=== PATIENT | female | born 1950 | race Caucasian/White ===

== ENCOUNTER 2019-05-06 11:10 | Emergency (ER) | payer OTHER, MEDICARE, SELFPAY ==
[2019-05-06 11:39] VITALS: BP 162/64; PULSE 87; RESP 17; TEMP 36.6; O2SAT 96; BMI 23.1
--- NOTE | 2019-05-06 11:39 | DI.RAD.S_ITS ---
PROCEDURE: XR KNEE RT 3V INDICATIONS: pain injury TECHNIQUE: 3 views of the knee were acquired. COMPARISON: None. FINDINGS: Bones: No fractures or dislocations. No suspicious bony lesions. Soft tissues: No joint effusion. No suspicious soft tissue calcifications. IMPRESSION: No acute fracture or dislocation of the right knee. Consider followup radiographs in 7-10 days if there is continued clinical concern. Dictated by: Willem Castillo M.D. on 05/06/2019 at 12:22 Approved by: Willem Castillo M.D. on 05/06/2019 at 12:26
--- NOTE | 2019-05-06 11:55 | ED.LOWEXIN ---
HPI - Extremity Injury (Lower) General Chief Complaint: Extremity Injury, Lower Stated Complaint: right knee injury x5 days Time Seen by Provider: 05/06/19 11:16 Source: patient Mode of arrival: Ambulatory Limitations: no limitations History of Present Illness HPI Narrative: 69-year-old female nonsmoker with noncontributory medical history presents with a chief complaint of right knee pain after a fall 5 days ago. She was wearing socks on a slippery surface and walking down stairs when she slipped and fell, twisting and bending her knee awkwardly. She states it is certainly more of a twisting injury than a direct impact. She denies any history of knee pain. She states it hurts when she ambulates, it causes her to limp and it feels slightly unsteady. She denies any other injury and is otherwise well and free of complaint. She denies any numbness, tingling or weakness MD complaint: knee injury Onset (ago): day(s) Type of Injury: inversion, hyperextension and hyperflexion Place: home Severity: moderate Relieving factors: immobilization and rest Exacerbating factors: weight bearing, movement and palpation Context: fall Associated symptoms: swelling and able to partially bear weight Other symptoms: none Treatments prior to arrival: cold therapy Related Data Home Medications Medication Instructions Recorded Confirmed ASPIRIN (Aspir-Low) 81 mg PO Q DAY #0 04/01/12 B.ANI/L.ACI/L.JO/L.PLAN/L.GAVI 1 cap PO SEE INSTRUCTIONS #0 04/01/12 (Probiotic Formula Capsule) FOLIC ACID/VIT A/VIT B1/VIT 1 tab PO QDAY #0 04/01/12 (#MULTIVITAMIN) KRILL OIL (#[facility] KRILL OIL) 300 mg PO Q DAY #0 04/01/12 PSYLLIUM (#METAMUCIL) 3.4 gm PO #0 04/01/12 SIMETHICONE (Gas Relief) 125 mg PO PRN #0 04/01/12 [SOY SMOOTHIE POWER] #0 04/01/12 CALCIUM CARBONATE (Calcium) 600 mg PO QDAY #0 06/17/12 CHOLECALCIFEROL (VITAMIN D) 1,000 iu PO QDAY #0 06/17/12 loratadine [Claritin] 10 mg PO QDAY #0 06/19/12 alprazolam 0.25 mg PO BIDP 05/06/19 05/06/19 clobetasol 1 applic TOPICAL 2XW 05/06/19 05/06/19 dicyclomine 10 mg PO TID 05/06/19 triamterene-hydrochlorothiazid 1 tab PO DAILY 05/06/19 05/06/19 Previous Rx's Medication Instructions Recorded Fluticasone Propionate (FLONASE) 1 spray INTRANASAL BID #1 09/04/12 Pravastatin Sodium (PRAVASTATIN 40 mg PO HS #90 10/21/12 SODIUM) Allergies Allergy/AdvReac Type Severity Reaction Status Date / Time Penicillins Allergy Verified 05/06/19 11:39 Review of Systems Constitutional Constitutional: Denies chills, Denies fatigue, Denies fever(s), Denies frequent falls, Denies lethargy and Denies weakness Eyes Eyes: Denies change in vision, Denies eye discharge, Denies irritation and Denies loss of vision ENT Ears, Nose, Mouth, and Throat: Denies change in voice, Denies dizziness, Denies neck pain, Denies sore throat and Denies throat swelling Cardiovascular Cardiovascular: Denies chest pain, Denies irregular heart rhythm, Denies lightheadedness, Denies palpitations, Denies dyspnea, Denies dyspnea on exertion and Denies orthopnea Respiratory Respiratory: Denies cough, Denies dyspnea, Denies dyspnea on exertion and Denies wheezing Gastrointestinal Gastrointestinal: Denies abdominal pain, Denies change in bowel habits, Denies diarrhea, Denies nausea and Denies vomiting Genitourinary Genitourinary: Denies hematuria, Denies flank pain, Denies urinary incontinence and Denies urinary urgency Musculoskeletal Musculoskeletal: Denies back pain, Reports joint swelling, Reports limited range of motion, Denies muscle weakness, Denies neck pain, Denies numbness and Denies tingling Integumentary/Breasts Skin/Breast: Denies pruritus, Denies erythema, Denies rash and Denies wounds Neurologic Neurologic: Denies behavioral changes, Denies confusion, Denies dizziness, Denies frequent falls, Denies loss of vision, Denies numbness, Denies tingling and Denies weakness Psychiatric Psychiatric: Denies anxiety, Denies behavioral changes, Denies confusion, Denies depression, Denies homicidal ideation and Denies suicidal ideation Endocrine Endocrine: Denies fatigue, Denies flushing and Denies palpitations Hematologic/Lymphatic Hematologic/Lymphatic: Denies easy bruising Allergic/Immunologic Allergic/Immunologic: Denies urticaria, Denies throat swelling and Denies wheezing Exam Narrative Exam Narrative: GEN: AOx3 and in mild distress EYES: Pupils are equal, round, and reactive to light and accommodation. Extraoccular muscles are intact bilaterally. There is no subconjunctival hemorrhage or exudate. CHEST: Lungs are clear to auscultation bilaterally and free of wheezes, rales, or rhonchi. Heart rate is regular rhythm, there are no murmurs, clicks, rubs, or gallops. There is no chest wall tenderness. ABD: Abdomen is soft and nontender. There is no guarding or rebound. Bowel sounds are normal in all 4 quadrants. There is no mass or organomegaly. EXT: Full but painful range of motion of the right knee. There is minimal effusion with some medial joint line tenderness to palpation. Positive Roscoe's sign with pain elicited and the medial joint line. No ligamentous laxity noted. No increasing pain with axial loading. SKIN: Warm, pink, and dry. No erythema or rash Initial Vital Signs Initial Vital Signs: Vital Signs Temperature 97.9 F 05/06/19 11:39 Pulse Rate 87 05/06/19 11:39 Respiratory Rate 17 05/06/19 11:39 Blood Pressure 162/64 H 05/06/19 11:39 Pulse Oximetry 96 05/06/19 11:39 Procedures Orthopedic Splinting/Casting Injury #1: Side: right Lower Extremity Injury Location: knee Lower Extremity Immobilizer: knee immobilizer Post splinting neuro exam: intact Post splinting vascular exam: intact Placed by: Nursing Course Orders Ordered: ED Orders 05/06/19 11:39 XR knee RT 3V Stat Vital Signs Vital signs: Vital Signs - 8 hr 05/06/19 11:39 05/06/19 12:51 Temperature 97.9 F 98.2 F Pulse Rate 87 77 Respiratory Rate 17 17 Blood Pressure 162/64 H Blood Pressure [Left Arm] 131/76 Pulse Oximetry 96 97 MDM - Extremity Injury (Lower) Imaging Data Knee Xray: Radiologist's impression: [address] [address] XRay Report Signed Patient: Tawnya Diallo EMR#: [id number] : 8Acct:[id number] Age/Sex: 69 / FDate of Service: 05/06/19 Loc: ED Accession Number: [id number] Procedure: XR knee RT 3V Ordering Provider: Tyler Huddleston D.O. PROCEDURE: XR KNEE RT 3V INDICATIONS: pain injury TECHNIQUE: 3 views of the knee were acquired. COMPARISON: None. FINDINGS: Bones: No fractures or dislocations. No suspicious bony lesions. Soft tissues: No joint effusion. No suspicious soft tissue calcifications. IMPRESSION: No acute fracture or dislocation of the right knee. Consider followup radiographs in 7-10 days if there is continued clinical concern. Dictated by: Willem Castillo M.D. on 05/06/2019 at 12:22 Approved by: Willme Castillo M.D. on 05/06/2019 at 12:26 Discharge Plan Departure Patient Disposition: Home Clinical Impression: Right knee injury Qualifiers: Encounter type: initial encounter Qualified Code(s): S89.91XA - Unspecified injury of right lower leg, initial encounter Discharge Date/Time: 05/06/19 13:05 Instructions: DI for Knee Sprain Activity Restrictions/Additional Instructions: *You have been diagnosed with [acute right knee injury, suspect soft tissue, meniscal or ligamentous injury] *What to do: *Take medications as directed: Tylenol or Motrin for pain *Follow up with your primary care provider in 2-3 days, call for an appointment. Let them know you were seen in the Emergency Department and that we ask that you be seen in follow up *Return to ER if you should have any new, worsening or concerning symptoms *Wear splint until follow up Prescriptions: No Action ASPIRIN (Aspir-Low) 81 mg PO Q DAY Qty: 0 RF: 0 B.ANI/L.ACI/L.JO/L.PLAN/L.GAVI (Probiotic Formula Capsule) 1 cap PO SEE INSTRUCTIONS Qty: 0 RF: 0 [SOY SMOOTHIE POWER] Qty: 0 RF: 0 KRILL OIL (#[facility] KRILL OIL) 300 mg PO Q DAY Qty: 0 RF: 0 FOLIC ACID/VIT A/VIT B1/VIT (#MULTIVITAMIN) 1 tab PO QDAY Qty: 0 RF: 0 SIMETHICONE (Gas Relief) 125 mg PO PRN Qty: 0 RF: 0 PSYLLIUM (#METAMUCIL) 3.4 gm PO Qty: 0 RF: 0 CHOLECALCIFEROL (VITAMIN D) 1,000 iu PO QDAY Qty: 0 RF: 0 CALCIUM CARBONATE (Calcium) 600 mg PO QDAY Qty: 0 RF: 0 loratadine [Claritin] 10 MG tablet 10 mg PO QDAY Qty: 0 RF: 0 Fluticasone Propionate (FLONASE) 1 spray Intranasal BID Qty: 1 RF: 0 Pravastatin Sodium (PRAVASTATIN SODIUM) 40 mg PO HS Qty: 90 RF: 1 triamterene-hydrochlorothiazid 37.5-25 mg tablet 1 tab PO DAILY RF: 0 alprazolam 0.25 MG tablet 0.25 mg PO BIDP RF: 0 clobetasol 0.05 % solution 1 applic TOPICAL 2XW RF: 0 dicyclomine 10 mg capsule 10 mg PO TID RF: 0 Referrals: Shonna Renteria PA-C [Non-Staff] -
[2019-05-06 12:51] VITALS: BP 131/76; PULSE 77; RESP 17; TEMP 36.8; O2SAT 97
== END 2019-05-06 13:05 | disposition home or self-care (01) ==
PROVIDERS: Emergency Provider Emergency Medicine
DX: S89.91XA Unspecified injury of right lower leg, initial encounter (principal); W10.8XXA Fall (on) (from) other stairs and steps, initial encounter
CPT/HCPCS: 73562; 99283

== ENCOUNTER → 2019-06-24 11:45 | Outpatient (CLI) | payer OTHER, SELFPAY ==
--- NOTE | 2019-06-24 | DI.US.S_ITS ---
PROCEDURE: US CAROTID DOPPLER BI INDICATIONS: OCCLUSION AND STENOSIS OF UNSPECIFIED CAROTID ARTERY TECHNIQUE: Color and pulse Doppler interrogation was performed of both carotid systems, with image documentation and velocity measurements. COMPARISON: None. FINDINGS: Stenosis calculations are based on SRU (Society of Radiologists in Ultrasound) criteria. Right side: Brachial blood pressure: 118/58 mm Hg. Common carotid artery peak systolic velocity: 51 cm/sec. Internal carotid artery peak systolic velocity: 85 cm/sec. Internal carotid artery end diastolic velocity: 23 cm/sec. External carotid artery peak systolic velocity: 62 cm/sec. ICA/CCA peak systolic ratio: 1.7. Chu scale imaging description: Mild soft plaque Percent internal carotid artery stenosis: Less than 50% stenosis. Vertebral artery: Flow direction is antegrade. Left side: Brachial blood pressure: 119/59 mm Hg. Common carotid artery peak systolic velocity: 54 cm/sec. Internal carotid artery peak systolic velocity: 71 cm/sec. Internal carotid artery end diastolic velocity: 19 cm/sec. External carotid artery peak systolic velocity: 76 cm/sec. ICA/CCA peak systolic ratio: 1.3. Chu scale imaging description: Mild soft plaque Percent internal carotid artery stenosis: Less than 50% stenosis. Vertebral artery: Flow direction is antegrade. IMPRESSION: Less than 50% stenosis at the proximal internal carotid arteries bilaterally. Dictated by: Scott So M.D. on 06/24/2019 at 14:46 Approved by: Scott So M.D. on 06/24/2019 at 14:48
== END ==
PROVIDERS: Family Provider Surgery; PCP Physician Assistant Medical; Visit Provider Physician Assistant Medical
DX: I65.23 Occlusion and stenosis of bilateral carotid arteries (principal)
CPT/HCPCS: 93880

== ENCOUNTER → 2021-08-25 10:31 | Outpatient (CLI) | payer OTHER, SELFPAY ==
--- NOTE | 2021-08-25 | DI.MG.S_ITS ---
UNILATERAL RIGHT DIGITAL DIAGNOSTIC MAMMOGRAM 3D/2D POST-PROCEDURE IMAGING FOR MARKER PLACEMENT: 08/25/2021 CLINICAL: Right post clip. Comparison is made to exams dated: 08/25/2021 ultrasound biopsy - [facility], 07/31/2021 ultrasound, and 07/31/2021 mammogram - [facility]. There are scattered fibroglandular elements in right breast. There is a marker clip in the appropriate position in the right breast at 9 o'clock posterior depth. This marker clip placement is at the biopsy site. IMPRESSION: POST PROCEDURE MAMMOGRAM FOR MARKER PLACEMENT There was a successful marker clip placement in the right breast posterior depth. This exam was interpreted at Station ID: [id number]. NOTE: For mammograms, a report in lay terms will be sent to the patient. Approximately 15% of breast malignancies will not be visualized mammographically. In the management of a palpable breast mass, a negative mammogram must not discourage biopsy of a clinically suspicious lesion. Electronically Signed By: Katelyn cummins/hortensia:08/25/2021 15:38:28 ACR BI-RADS Category Post-procedure mammogram for marker placement
--- NOTE | 2021-08-25 | PATH_ITS ---
[facility] Accession Number: [id number] . 01 Material submitted: . breast - RIGHT BREAST MASS 9:00 7CMFN . 02 Diagnosis: Right Breast Mass 9 o'clock, 7 cm from Nipple, Ultrasound-Guided Needle Core Biopsy: Highly fragmented biopsy with features of at least in-situ carcinoma. Please see Cancer Case Summary. . . CASE SUMMARY Specimen Procedure: Needle biopsy. Specimen laterality: Right. . Tumor Tumor site: 9 o'clock, midway between the upper outer and lower outer quadrants. Histologic type: Favor at least in-situ carcinoma (ductal by e-cadherin studies); differential diagnosis includes encapsulated papillary carcinoma, solid papillary carcinoma, and invasive carcinoma. Tissue fragmentation is obscuring. Architectural patterns: Papillary and solid patterns present; tissue fragmentation precludes definitive characterization. Nuclear grade: Grade 1 (low). Necrosis: Not identified. Microcalcifications: Not identified. Special Studies: Estrogen Receptor (ER) Status: Positive, greater than 95% of tumor nuclei. Average intensity of staining: Strong. Primary antibody: SP1 Progesterone Receptor (PgR) Status: Positive, approximately 70% of tumor nuclei. Average intensity of staining: Moderate to strong staining. Primary antibody: 1E2 HER2 (by immunohistochemistry): Negative at 0+. Primary antibody: 4B5 [facility] 08/30/2021 1601 Local . 02 Comment: As part of routine research associate quality control qc, this case was also reviewed by Dr. Kaur, who agrees with the interpretation. . Dr. Renteria's phone number not identified for communication of results. . 02 Electronically signed: . Kiki Cummings MD, Pathologist NPI- [id number] . 01 Gross description: . Received in formalin and labeled right breast 9 o'clock, 7 cm FN are multiple fragments of santiago soft tissue measuring 2.5 x 0.7 x 0.3 cm in aggregate. All fragments are submitted in one cassette. Time of collection is 08/25/2021 at 11:55 a.m. Specimen will finish processing and be out of formalin on 08/28/2021 at 11:30 a.m. ([id number]) /MRV 08/28/2021 1210 Local . 02 Microscopic: . An immunohistochemistry study is performed to evaluate the cells of interest. The control stain shows appropriate reactivity. . RESULTS: P63: Present in regions of interest. Smooth muscle myosin: Present in regions of interest. CK 5/6: Diminished in regions of interest. E-cadherin: Diffusely positive. UMAIR-3: Diffuse, strong positivity. . 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 . CAP BREAST BIOMARKER REPORTING TEMPLATE: . Estrogen Receptor (ER) Status: Positive, greater than 95% of tumor nuclei. Average intensity of staining: Strong. Primary antibody: SP1 Progesterone Receptor (PgR) Status: Positive, Approximately 70% of tumor nuclei. Average intensity of staining: Moderate to strong staining. Primary antibody: 1E2 HER2 (by immunohistochemistry): Negative at 0+. Primary antibody: 4B5 . . Cold Ischemia and Fixation Times: Meets requirements in the latest version of the ASCO/CAP guidelines. Testing performed on Block Number: . TECHNICAL NOTE: The scoring criteria for breast biomarkers by immunohistochemistry is based on the current ASCO/CAP guidelines (Sydney et al, Arch Pathol Lab Med 2010: 134(6): 907-922 / Diego MANE et al, Arch Pathol Lab Med 2014: 138(2):241-256). Deparaffinized sections of formalin fixed tissue (along with appropriate positive controls) are incubated with the above antibody(s). Using the automated Lena stainer, tissue is incubated with the designated antibody* which is then localized by a non-biotin, dual polymer detection system. The external controls are reviewed for appropriate reactivity and found to be adequate. Results on the target cell population are indicated above. These tests have not been validated on decalcified tissue. . * This test was developed and its performance characteristics determined by [employer]. It has not been cleared or approved by the U.S. Food and Drug Administration. The FDA has determined that such clearance or approval is not necessary. This test is used for clinical purposes. It should not be regarded as investigational or for research. . 02 Pathologist provided ICD-10: D05.10 . 02 CPT . 829873, Z07791, D12668, 639100, 436434, 336336 Specimen Comment: A courtesy copy of this report has been sent to [facility] Performed at: 01 [facility] [address] [place] [address], [place], [place] [id number] MD Fercho Garrido MD Phone: [phone] Performed at: 02 [facility] [address] [place], [place] [id number] MD Génesis Varghese MD Phone: [phone]
--- NOTE | 2021-08-25 | DI.US.S_ITS ---
ULTRASOUND GUIDED BIOPSY RIGHT BREAST USING VACUUM DEVICE WITH MARKING DEVICE INSERTED AND POST DIGITAL MAMMOGRAPHIC IMAGIN08/25/2021 CLINICAL: Right breast mass. PATIENT CONSENT: Risks (minor bleeding, infection, vasovagal reaction and repeat procedure), benefits and alternatives were explained to the patient and written informed consent was obtained. Correlation is made to exams dated: 07/31/2021 ultrasound, 07/31/2021 mammogram, 04/28/2021 mammogram, 07/14/2019 mammogram, 04/15/2018 mammogram, and 01/21/2017 mammogram - [facility]. An ultrasound guided biopsy using real-time ultrasound was performed for the irregular shaped mass located in the right breast at 9 o'clock posterior depth. The skin was prepped in the usual manner. Local anesthetic was administered to the access site. A skin yovani was made in the breast. The abnormality was approached from the lateral aspect. A 13 gauge biopsy needle was placed adjacent to the abnormality under ultrasound guidance. Once the needle was documented to be in the correct location, three specimens were obtained using the Mammotome biopsy system. A Vision biopsy clip was inserted into the biopsy cavity. A skin closure strip was applied to the access site. Post procedure digital mammographic imaging was obtained. The specimens were sent to the laboratory for pathological analysis. IMPRESSION: ULTRASOUND GUIDED BIOPSY MALIGNANT Ultrasound guided biopsy of the mass in the right breast at 9 o'clock posterior depth was successful. 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 Pathology results are concordant with imaging findings. A surgical/oncologic consultation is recommended. This exam was interpreted at Station ID: [id number]. Katelyn Hudson M.D. [facility],aty/:09/01/2021 07:10:31
== END ==
PROVIDERS: Family Provider Surgery; PCP Physician Assistant Medical; Referring Provider Physician Assistant Medical; Visit Provider Physician Assistant Medical
DX: D05.91 Unspecified type of carcinoma in situ of right breast (principal)
CPT/HCPCS: 19083; 77065

== ENCOUNTER → 2021-09-20 13:10 | Outpatient (CLI) | payer OTHER, SELFPAY ==
--- NOTE | 2021-09-20 | DI.MRI.S_ITS ---
BREAST MRI OF BOTH BREASTS: 09/20/2021 CLINICAL: Adenocarcinoma. TECHNIQUE: The patient was placed prone in a dedicated breast imaging coil. Precontrast axial STIR and 3D FLASH without fat saturation sequences were obtained. Both before and after bolus injection of contrast, sequential 1-minute axial 3D FLASH with fat saturation sequences for 3 time points, with subtraction images and maximum intensity projections (MIP's) generated. Delayed sagittal FLASH images with fat saturation were also obtained. Computer-aided detection, including computer algorithm analysis of MRI image data for lesion detection and characterization, pharmacokinetic analysis, with further physician review for interpretation, was performed. COMPARISON: [facility], MM TOMOSYNTHESIS SCREENING BI, 04/15/2018, 10:25. [facility], MM TOMOSYNTHESIS SCREENING BI, 07/14/2019, 8:28. [facility], MM TOMOSYNTHESIS SCREENING BI, 04/28/2021, 13:25. [facility], , US RIGHT BREAST, 07/31/2021, 10:16. [facility], MM TOMOSYNTHESIS DIAGNOSTIC RT, 07/31/2021, 10:20. [facility], MM DIAGNOSTIC MAMMO UNILAT RT2D, 08/25/2021, 11:59. Image quality: Excellent. There is minimal background parenchymal enhancement. There is scattered fibroglandular tissue in the. Right breast: At the 9 o'clock axis, posterior depth of the right breast approximately 6 cm from the nipple there is an enhancing, irregular mass measuring 0.9 cm in craniocaudal dimension (image 50/series 17) and approximately 1.1 cm x 1.2 cm in axial cross-sectional dimension (image 52/series 6). There is delayed phase washout enhancement kinetics. There is an associated susceptibility artifact compatible with biopsy marker. This mass compatible with recently biopsy-proven malignancy. There is an enhancing 1.1 cm lesion in the posterior depth of the lower, outer quadrant of the right breast likely representing a bifurcation of a vessel. This is best seen on images 44 through 48 in series 17. Otherwise, no other suspicious mass identified in the right breast. No other suspicious areas of non-mass enhancement or nipple abnormalities. No skin abnormality seen. No axillary or internal mammary chain adenopathy. Left breast: There is an enhancing 0.7 cm oval mass in the middle depth of the left breast approximately 7.6 cm from the nipple demonstrating mixed enhancement kinetics slight T2 hyperintensity, and appears to represent a tortuous focus of vessels. Otherwise, no other suspicious mass, non-mass enhancement, architectural distortion. No suspicious skin or nipple abnormalities. No axillary or internal mammary chain adenopathy. Miscellaneous: Visualized portions of the upper abdomen and chest appear unremarkable. IMPRESSION: KNOWN BIOPSY PROVEN MALIGNANCY 1. Irregular 1.1 x 1.2 x 0.9 cm enhancing in the posterior depth of the right breast at approximately the 9 o'clock axis compatible with biopsy-proven malignancy. Otherwise, no evidence for multifocal, multicentric or contralateral disease. No evidence for luna metastases. 2. Left breast without MRI evidence for malignancy. COMMENT: The imaging literature indicates that a negative contrast breast MRI examination has a high sensitivity and a moderate specificity for detecting and excluding invasive carcinomas to a detection threshold of 3-5 mm; nonetheless, appropriate clinical and mammographic follow-up are recommended. MRI is not sensitive for detecting DCIS (ductal carcinoma in situ) and may not detect large invasive neoplasms that show only minimal enhancement such as mucinous carcinoma. If there are suspicious calcifications or clinically worrisome palpable masses, then biopsy should still be considered. Invasive neoplasms can be hidden by co-existent and benign enhancement caused by mastitis, hormone therapy effects, radiation therapy, , and recent biopsy or surgery. False positive examinations can occur in a number of circumstances, including breasts that have recently been subject to invasive procedures and those that contain atypical ductal hyperplasia, hormonally stimulated glandular tissue, fat necrosis, or radial scars. This exam was interpreted at Station ID: [id number]. Electronically Signed By: Lux Hudson M.D. aty/:09/20/2021 17:54:12 ACR BI-RADS Category 6: Known biopsy proven malignancy [id number]
== END ==
PROVIDERS: Family Provider Surgery; PCP Physician Assistant Medical; Referring Provider Physician Assistant Medical; Visit Provider Physician Assistant Medical
DX: C50.811 Malignant neoplasm of overlapping sites of right female breast (principal)
CPT/HCPCS: 77049; A9579

== ENCOUNTER → 2023-02-04 08:37 | Outpatient (CLI) | payer OTHER, SELFPAY ==
--- NOTE | 2023-02-04 08:38 | DI.MRI.S_ITS ---
BREAST MRI OF BOTH BREASTS: 02/04/2023 CLINICAL: Breast Cancer. Comparison is made to exams dated: 01/09/2023 stereotactic biopsy, 12/19/2022 ultrasound, 12/17/2022 mammogram - [facility], 09/20/2021 breast MRI, and 08/25/2021 mammogram - [facility]. PROCEDURE: MR BREAST BI WO/W CON INDICATIONS: BREAST CANCER TECHNIQUE: The patient was placed prone in a dedicated breast imaging coil. Precontrast axial STIR and 3D FLASH without fat saturation sequences were obtained. Both before and after bolus injection of contrast, sequential 1-minute axial 3D FLASH with fat saturation sequences for 3 time points, with subtraction images and maximum intensity projections (MIP's) generated. Delayed sagittal FLASH images with fat saturation were also obtained. Computer-aided detection, including computer algorithm analysis of MRI image data for lesion detection and characterization, pharmacokinetic analysis, with further physician review for interpretation, was performed. FINDINGS: Image quality: Good There is mild background parenchymal enhancement. Right breast: Postoperative changes are seen in the right breast. Low-level homogeneous focal non-mass enhancement is seen at the site of lumpectomy, extending posteriorly to the chest wall, likely representing postoperative changes. Low signal is seen on pre contrast T1 and T2 weighted images. The enhancement pattern does not appear to match the original tumor. Left breast: Corresponding to biopsy-proven malignancy is an irregular mass with spiculated margins measuring 11 x 10 x 6 mm (, ). This is located at 12:00 middle depth. Extending from the mass superiorly is a 3.9 cm linear area of non mass enhancement () Miscellaneous: No suspicious lymph nodes in the field of view of the internal mammary chain or axilla. No suspicious findings in the partially visualized upper abdomen or anterior mediastinum. IMPRESSION: KNOWN BIOPSY PROVEN MALIGNANCY Right breast: Postoperative changes. Recommending continued screening. Left breast: Biopsy-proven malignancy corresponding to a spiculated mass at 12:00 measuring up to 11 mm. This area is slightly larger than suggested on mammogram. This area was not seen on previous ultrasound. There is also a linear non mass enhancement extending from the primary mass measuring in aggregate 3.6 cm. Differential includes additional linear tract of malignancy. Differential also includes postprocedural changes of stereotactic biopsy, performed 1 month prior. BIRADS 6 This exam was interpreted at Station ID: [id number]. Electronically Signed By: Victoriano Lombardo M.D. lc/:02/04/2023 11:13:59 ACR BI-RADS Category 6: Known biopsy proven malignancy [id number]
== END ==
PROVIDERS: Family Provider Surgery; PCP Physician Assistant Medical; Referring Provider Physician Assistant Medical; Visit Provider Physician Assistant Medical
DX: C50.812 Malignant neoplasm of overlapping sites of left female breast (principal); N64.89 Other specified disorders of breast
CPT/HCPCS: 77049; A9579